=== PATIENT | male | born 1960 | race Caucasian/White ===

== ENCOUNTER → 2017-01-05 | Outpatient (CLI) | payer BC | LOC: MW.CHUR 11:32 | PROVIDERS: ATTEND Urology | DX: N40.0 Benign prostatic hyperplasia without lower urinary tract symptoms (principal); R31.9 Hematuria, unspecified | CPT/HCPCS: 36415; 51798; 81001; 84153 ==

== ENCOUNTER 2018-02-28 03:21 | Emergency (ER) | payer BC ==
[2018-02-28] MEDS ORDERED: Sodium Chloride 0.9% 10 ML Syringe FLUSH PRN (03:42)
[2018-02-28] MEDS ORDERED: Ondansetron 4 MG/2 ML SDV IVPUSH ONE (03:42)
[2018-02-28] MEDS ORDERED: Sodium Chloride 0.9% 2.5 ML Syringe FLUSH PRN (03:42)
[2018-02-28] MEDS ORDERED: Ketorolac 30 MG/ML SDV IVPUSH ONE (03:42)
[2018-02-28] MEDS ORDERED: Morphine 2 MG/ML Syringe IVPUSH ONE (03:42)
[2018-02-28] MEDS ORDERED: Sodium Chloride 0.9% 1,000 ML IV ONE (03:42)
--- NOTE | 2018-02-28 03:44 | EDM.PDOC ---
ED HPI GENERAL MEDICAL PROBLEM - General Chief Complaint: General Stated Complaint: LEFT SIDE PAIN Time Seen by Provider: 02/28/18 03:33 - History of Present Illness INITIAL COMMENTS - FREE TEXT/NARRATIVE: HISTORY AND PHYSICAL: History of present illness: The patient is a 57-year-old male with no stated GI or history presents with sudden onset of left flank pain that radiates to his left abdomen that started about one hour ago. Patient said he was sleeping when this started and had a normal day yesterday and in fact was at a wedding earlier this evening. When he woke up he had the sudden pain and it was associated with nausea and vomiting but no diarrhea. He has urinated since the onset of the pain it is not dark or bloody. He has never had kidney stones and he took no medications for this pain or nausea prior to coming here. He denies any recent trauma and had a normal bowel movement yesterday. He has no testicular pain or swelling no chest pain no shortness of breath and no right-sided abdominal pain. Review of systems: As per history of present illness and below otherwise all systems reviewed and negative. Past medical history: As per history of present illness and as reviewed below otherwise noncontributory. Surgical history: As per history of present illness and as reviewed below otherwise noncontributory. Social history: No reported history of drug or alcohol abuse. Family history: As per history of present illness and as reviewed below otherwise noncontributory. Physical exam: General: Well-developed well-nourished man who looks uncomfortable but is nontoxic and vital signs are noted by me HEENT: Atraumatic, normocephalic, negative for conjunctival pallor or scleral icterus, mucous membranes moist, throat clear, neck supple, nontender, trachea midline. Lungs: Clear to auscultation, breath sounds equal bilaterally, chest nontender. Heart: S1S2, regular, negative for clicks, rubs, or JVD. Abdomen: Soft, nondistended, there is some mild left lower quadrant tenderness without rebound or guarding and bowel sounds are hypoactive. Negative for masses or hepatosplenomegaly. Negative for costovertebral tenderness. Pelvis: Stable nontender. Genitourinary: Deferred. Rectal: Deferred. Extremities: Atraumatic, negative for cords or calf pain. Neurovascular unremarkable. Neuro: Awake, alert, oriented. Cranial nerves II through XII unremarkable. Cerebellum unremarkable. Motor and sensory unremarkable throughout. Exam nonfocal. Diagnostics: CBC CMP amylase lipase UA CT scan of the abdomen and pelvis Therapeutics: IV IV fluids Zofran Toradol morphine Dilaudid urine strainers for home Patient and at bedside are aware of all testing results and need for follow -up with urology. I will give them [place] Zofran and Flomax for home as well as urine strainers and have advised them for reasons to return to the ED. I've also advised him that he is somewhat dehydrated and needs to hydrate more. They' re comfortable with this care plan. Impression: Acute left flank pain with mild hydronephrosis improving stable Definitive disposition and diagnosis as appropriate pending reevaluation and review of above. Bilateral Flank Pain Score (Numeric/FACES): 10 - Related Data Allergies Allergy/AdvReac Type Severity Reaction Status Date / Time No Known Allergies Allergy Verified 02/28/18 03:43 Home Meds: Home Meds Omeprazole 20 mg PO ASDIRECTED 08/28/14 [History] ED ROS GENERAL - Review of Systems Review Of Systems: ROS reveals no pertinent complaints other than HPI. ED EXAM, GENERAL - Physical Exam Exam: See Below (See dictation) Course - Vital Signs Last Recorded V/S: Last Vital Signs Temp 35.9 C 02/28/18 05:02 Pulse 55 L 02/28/18 05:02 Resp 19 02/28/18 05:02 BP 132/57 L 02/28/18 05:02 Pulse Ox 95 02/28/18 05:02 - Orders/Labs/Meds Orders: Active Orders 24 hr Category Date Time Status Abdomen Pelvis wo Cont [CT] Stat Exams 02/28/18 03:42 Taken UA W/MICROSCOPIC [URIN] Stat Lab 02/28/18 04:20 Ordered Sodium Chloride 0.9% [Saline Flush] Med 02/28/18 03:42 Active 10 ml FLUSH ASDIRECTED PRN Sodium Chloride 0.9% [Saline Flush] Med 02/28/18 03:42 Active 2.5 ml FLUSH ASDIRECTED PRN Saline Lock Insert [OM.PC] Stat Oth 02/28/18 03:41 Ordered Medication Orders Sodium Chloride (Saline Flush) 10 ml FLUSH ASDIRECTED PRN PRN Reason: Keep Vein Open Sodium Chloride (Saline Flush) 2.5 ml FLUSH ASDIRECTED PRN PRN Reason: Keep Vein Open Labs: Laboratory Tests 02/28/18 02/28/18 02/28/18 Range/Units 03:50 03:50 04:20 WBC 8.76 (4.0-11.0) K/uL RBC 4.78 (4.50-5.90) M/uL Hgb 13.9 (13.0-17.0) g/dL Hct 40.0 (38.0-50.0) % MCV 83.7 (80.0-98.0) fL MCH 29.1 (27.0-32.0) pg MCHC 34.8 (31.0-37.0) g/dL RDW Std Deviation 42.5 (28.0-62.0) fl RDW Coeff of Sylvia 14 (11.0-15.0) % Plt Count 196 (150-400) K/uL MPV 9.30 (7.40-12.00) fL Neut % (Auto) 78.1 (48.0-80.0) % Lymph % (Auto) 15.0 L (16.0-40.0) % [place] % (Auto) 5.5 (0.0-15.0) % Eos % (Auto) 1.3 (0.0-7.0) % Baso % (Auto) 0.1 (0.0-1.5) % Neut # (Auto) 6.9 H (1.4-5.7) K/uL Lymph # (Auto) 1.3 (0.6-2.4) K/uL [place] # (Auto) 0.5 (0.0-0.8) K/uL Eos # (Auto) 0.1 (0.0-0.7) K/uL Baso # (Auto) 0.0 (0.0-0.1) K/uL Nucleated RBC % 0.0 /100WBC Nucleated RBCs # 0 K/uL Sodium 140 (136-148) mmol/L Potassium 3.3 L (3.5-5.1) mmol/L Chloride 103 (98-107) mmol/L Carbon Dioxide 27.1 (21.0-32.0) mmol/L BUN 21 H (7.0-18.0) mg/dL Creatinine 1.2 (0.8-1.3) mg/dL Est Cr Clr Drug Dosing 2.55 mL/min Estimated GFR (MDRD) > 60.0 ml/min Glucose 153 H (74-106) mg/dL Calcium 8.4 L (8.5-10.1) mg/dL Total Bilirubin 0.3 (0.2-1.0) mg/dL AST 22 (15-37) IU/L ALT 37 (14-63) IU/L Alkaline Phosphatase 62 (46-116) U/L Total Protein 7.6 (6.4-8.2) g/dL Albumin 4.0 (3.4-5.0) g/dL Globulin 3.6 H (2.0-3.5) g/dL Albumin/Globulin Ratio 1.1 L (1.3-2.8) Amylase 49 (25-115) U/L Lipase 128 (73-393) U/L Urine Color YELLOW Urine Appearance HAZY Urine pH 6.0 (5.0-8.0) Ur Specific [place] >= 1.030 (1.001-1.035) Urine Protein TRACE (NEGATIVE) mg/dL Urine Glucose (UA) NEGATIVE (NEGATIVE) mg/dL Urine Ketones NEGATIVE (NEGATIVE) mg/dL Urine Occult Blood LARGE H (NEGATIVE) Urine Nitrite NEGATIVE (NEGATIVE) Urine Bilirubin NEGATIVE (NEGATIVE) Urine Urobilinogen 0.2 (<2.0) EU/dL Ur Leukocyte Esterase NEGATIVE (NEGATIVE) Urine RBC 3-5 (0-2/HPF) Urine WBC 0-2 (0-5/HPF) Ur Epithelial Cells RARE (NONE-FEW) Urine Bacteria FEW (NEGATIVE) Urine Mucus LIGHT (NONE-MOD) Meds: Medications Generic Name Dose Route Start Last Admin Trade Name Freq PRN Reason Stop Dose Admin Sodium Chloride 10 ml 02/28/18 03:42 Saline Flush FLUSH ASDIRECTED PRN Keep Vein Open Sodium Chloride 2.5 ml 02/28/18 03:42 Saline Flush FLUSH ASDIRECTED PRN Keep Vein Open Discontinued Medications Generic Name Dose Route Start Last Admin Trade Name Freq PRN Reason Stop Dose Admin Hydromorphone HCl 1 mg 02/28/18 04:44 02/28/18 05:02 Dilaudid IVPUSH 02/28/18 04:45 Not Given ONETIME ONE Hydromorphone HCl 1 mg 02/28/18 04:57 02/28/18 04:59 Dilaudid IVPUSH 02/28/18 04:58 1 mg ONETIME ONE Administration Hydromorphone HCl Confirm 02/28/18 04:56 02/28/18 05:02 Dilaudid Administered 02/28/18 04:57 Not Given Dose 1 mg .ROUTE .STK-MED ONE Sodium Chloride 1,000 mls @ 999 mls/hr 02/28/18 03:42 02/28/18 03:53 Normal Saline IV 02/28/18 04:42 999 mls/hr STAT ONE Administration Ketorolac Tromethamine 30 mg 02/28/18 03:42 02/28/18 03:53 Toradol IVPUSH 02/28/18 03:43 30 mg ONETIME ONE Administration Morphine Sulfate 2 mg 02/28/18 03:42 02/28/18 03:53 Morphine IVPUSH 02/28/18 03:43 2 mg ONETIME ONE Administration Ondansetron HCl 4 mg 02/28/18 03:42 02/28/18 03:54 Zofran IVPUSH 02/28/18 03:43 4 mg ONETIME ONE Administration Departure - Departure Time of Disposition: 05:46 Disposition: Home, Self-Care 01 Condition: Good Clinical Impression: Acute flank pain Hydronephrosis Qualifiers: Hydronephrosis type: unspecified Qualified Code(s): N13.30 - Unspecified hydronephrosis - Discharge Information Referrals: PCP,None [Primary Care Provider] - Forms: ED Department Discharge Additional Instructions: The following information is given to patients seen in the emergency department who are being discharged to home. This information is to outline your options for follow-up care. We provide all patients seen in our emergency department with a follow-up referral. The need for follow-up, as well as the timing and circumstances, are variable depending upon the specifics of your emergency department visit. If you don't have a primary care physician on staff, we will provide you with a referral. We always advise you to contact your personal physician following an emergency department visit to inform them of the circumstance of the visit and for follow-up with them and/or the need for any referrals to a consulting specialist. The emergency department will also refer you to a specialist when appropriate. This referral assures that you have the opportunity for followup care with a specialist. All of these measure are taken in an effort to provide you with optimal care, which includes your followup. Under all circumstances we always encourage you to contact your private physician who remains a resource for coordinating your care. When calling for followup care, please make the office aware that this follow-up is from your recent emergency room visit. If for any reason you are refused follow-up, please contact the [facility] emergency department at and ask to speak to the emergency department charge nurse. [facility] Counts include 234 beds at the [facility] [place] [address] Please push hydration and strain all urine. Please call and follow-up with Dr. Gruber our urologist next week and return to ER as needed and as we discussed. Please use all medications as prescribed. You have been given [facility] Flomax and Zofran from [employer] - My Orders Last 24 Hours: My Active Orders 02/28/18 03:41 Saline Lock Insert [OM.PC] Stat 02/28/18 03:42 Abdomen Pelvis wo Cont [CT] Stat Sodium Chloride 0.9% [Saline Flush] 10 ml FLUSH ASDIRECTED PRN Sodium Chloride 0.9% [Saline Flush] 2.5 ml FLUSH ASDIRECTED PRN 02/28/18 04:20 UA W/MICROSCOPIC [URIN] Stat - Assessment/Plan Last 24 Hours: My Active Orders 02/28/18 03:41 Saline Lock Insert [OM.PC] Stat 02/28/18 03:42 Abdomen Pelvis wo Cont [CT] Stat Sodium Chloride 0.9% [Saline Flush] 10 ml FLUSH ASDIRECTED PRN Sodium Chloride 0.9% [Saline Flush] 2.5 ml FLUSH ASDIRECTED PRN 02/28/18 04:20 UA W/MICROSCOPIC [URIN] Stat
[2018-02-28 04:26] LABS: CHLORIDE,CL 103 mmol/L (98-107); SODIUM,NA 140 mmol/L (136-148)
[2018-02-28] MEDS ORDERED: HYDROmorphone 2 MG/ML Syringe IVPUSH ONE (04:44)
[2018-02-28] MEDS ORDERED: HYDROmorphone 1 MG/ML Syringe ONE (04:56)
[2018-02-28] MEDS ORDERED: HYDROmorphone 1 MG/ML Syringe IVPUSH ONE (04:57)
--- NOTE | 2018-03-01 15:22 | CT ---
EXAM DATE: 02/28/18 PATIENT'S AGE: 57 Patient: MAGO YEH Facility: [place], [place] Site . Site : 1960 Study: CT Abdomen/Pelvis [id number]/24/2018 4:44:52 AM Ordering Physician: Yuly Winn Final Report: INDICATION: Left lower quadrant pain TECHNIQUE: CT Abdomen and pelvis without i.v. contrast. Coronal and sagittal reformats were obtained. CONTRAST: None COMPARISON: None FINDINGS: Lower chest: Minimal bibasilar ground-glass atelectasis is seen. Liver: Unremarkable. Spleen: Unremarkable. Pancreas: Unremarkable. Gallbladder: Unremarkable. Kidney: Mild left hydroureter is present with soft tissue stranding surrounding the proximal ureter and kidney. There is also mild left renal pelvicaliectasis. The right kidney and ureter are unremarkable in appearance. Adrenal: Unremarkable. Bowel: Mild sigmoid diverticulosis is present with no inflammatory changes seen by CT. On image 108, there is a small lobule of fat outlined by soft tissue infiltration, abutting the distal descending colon. The appendix is normal in appearance and size. Vascular: Unremarkable. Lymph: Unremarkable. Peritoneum: Unremarkable. No pneumoperitoneum is seen. No significant ascites is noted. Pelvis: Small fat density in the right spermatic cord is present which is likely due to a lipoma. Soft tissue: See above. Bone: Small bone islands are present in the superior pubic rami bilaterally. IMPRESSIONS: 1. Mild left hydroureter is present with soft tissue stranding surrounding the proximal ureter and kidney. There is also mild left renal pelvicaliectasis. Correlation with clinical history would be helpful to distinguish between a recently passed stone or urinary tract infection with pyelitis or pyelonephritis. 2. On image 108, there is a small lobule of fat outlined by soft tissue infiltration, abutting the distal descending colon. This is most likely due to mild epiploic appendagitis. Dictated by Minh Yang MD @ 02/28/2018 4:54:07 AM Please note that all CT scans at this facility use dose modulation, iterative reconstruction, and/or weight-based dosing when appropriate to reduce radiation dose to as low as reasonably achievable. Dictated by: Minh Yang MD @ 02/28/2018 04:54:16 (Electronic Signature) Report Signed by Proxy. MTDD
== END 2018-02-28 06:03 | disposition home or self-care (01) ==
LOC: MW.ED 03:21
DX: N13.30 Unspecified hydronephrosis (principal)
CPT/HCPCS: 36415; 74176; 80053; 81001; 82150; 83690; 85025; 87086; 96361; 96374; 96375; 99284; J1170; J1885; J2270; J2405; J7040

== ENCOUNTER 2020-12-15 13:03 | Emergency (ER) | payer BC ==
[2020-12-15] MEDS ORDERED: Diphtheria,Pertussis(Acell),Tetanus Vaccine 0.5 ML Syringe IM ONE (13:37)
--- NOTE | 2020-12-15 13:38 | EDM.PDOC ---
ED HPI GENERAL MEDICAL PROBLEM - General Chief Complaint: Upper Extremity Injury/Pain Stated Complaint: RT HAND CUT Time Seen by Provider: 12/15/20 13:05 Source of Information: Reports: Patient History Limitations: Reports: No Limitations - History of Present Illness INITIAL COMMENTS - FREE TEXT/NARRATIVE: 60-year-old male no relevant past medical history presents for amputation injury to right third digit. Patient was moving some metal tin when his hand got smashed between 2 pieces of metal. He notes the bleeding was difficult to control prior to arrival. He does not think his tetanus vaccination is up-to-date. No other injuries right middle finger Pain Score (Numeric/FACES): 1 - Related Data Allergies Allergy/AdvReac Type Severity Reaction Status Date / Time No Known Allergies Allergy Verified 12/15/20 13:53 Home Meds: Home Meds . [No Known Home Meds] 12/15/20 [History] Past Medical History HEENT History: Reports: None Cardiovascular History: Reports: None Respiratory History: Reports: None Gastrointestinal History: Reports: None Genitourinary History: Reports: None Neurological History: Reports: None Psychiatric History: Reports: None Endocrine/Metabolic History: Reports: None Hematologic History: Reports: None Immunologic History: Reports: None Oncologic (Cancer) History: Reports: None Dermatologic History: Reports: None - Infectious Disease History Infectious Disease History: Reports: None - Past Surgical History Head Surgeries/Procedures: Reports: None Endocrine Surgical History: Reports: None Neurological Surgical History: Reports: None Other Musculoskeletal Surgeries/Procedures:: neck surgery 15 years ago Social & Family History - Caffeine Use Caffeine Use: Reports: Soda Review of Systems - Review of Systems Review Of Systems: Comprehensive ROS is negative, except as noted in HPI. ED EXAM, GENERAL - Physical Exam Exam: See Below Exam Limited By: No Limitations General Appearance: Alert, WD/WN, No Apparent Distress Ears: Hearing Grossly Normal Throat/Mouth: Normal Voice, No Airway Compromise Head: Atraumatic, Normocephalic Neck: Normal Inspection Respiratory/Chest: No Respiratory Distress, No Accessory Muscle Use Cardiovascular: Normal Peripheral Pulses Extremities: Other (zone I fingertip amputation injury of R 3rd digit; does not involve nail or nailbed, no bony involvement on physical exam, intact sensation, mild oozing bleeding. ) Neurological: Alert, Normal Cognition, Normal Gait Psychiatric: Normal Affect, Normal Mood Skin Exam: Warm, Dry, Intact, Normal Color Course - Vital Signs Last Recorded V/S: Last Vital Signs Temp 97.5 F 12/15/20 13:49 Pulse 61 12/15/20 13:49 Resp 16 12/15/20 13:49 BP 141/69 H 12/15/20 13:49 Pulse Ox 96 12/15/20 13:49 - Orders/Labs/Meds Orders: Active Orders 24 hr Category Date Time Status Vaccines to be Administered [RC] PER UNIT ROUTINE Care 12/15/20 13:37 Active Meds: Medications Discontinued Medications Generic Name Dose Route Start Last Admin Trade Name Freq PRN Reason Stop Dose Admin Diphtheria/Tetanus/Acell Pertussis 0.5 ml 12/15/20 13:37 Diphtheria,Pertussis(Acell),Tetanus Vaccine 0.5 Ml Syringe IM 12/15/20 13:38 .ONCE ONE - Re-Assessments/Exams Free Text/Narrative Re-Assessment/Exam: 12/15/20 13:53 Patient presents with apparent zone 1 fingertip amputation injury to right third digit. It does not seem to involve the fingernail, nailbed. No bony involvement noted on physical exam. Will get x-ray of the finger to ensure no bony involvement. Patient's hand is soaking in soapy water now and will clean. Will update patient's tetanus vaccination. 12/15/20 14:07 X-ray imaging confirms that there is no bony involvement. Departure - Departure Time of Disposition: 14:07 Disposition: Home, Self-Care 01 Condition: Good Clinical Impression: Fingertip amputation Qualifiers: Encounter type: initial encounter Qualified Code(s): S68.119A - Complete traumatic metacarpophalangeal amputation of unspecified finger, initial encounter - Discharge Information Instructions: Traumatic Finger Amputation Referrals: PCP,None [Primary Care Provider] - Forms: ED Department Discharge Additional Instructions: You presented to the emergency department today with a fingertip amputation injury. It does not seem to involve the nailbed or fingernail. It does not seem to involve the bone. You will need to keep this clean and covered. It can take several weeks for the fingertip to completely epithelialize or grow back. You should soak the affected finger in soapy water for 10 minutes once or twice daily. You can clean it with soap and water. You should follow-up with your primary care physician for wound reassessment. The following information is given to patients seen in the emergency department who are being discharged to home. This information is to outline your options for follow-up care. We provide all patients seen in our emergency department with a follow-up referral. The need for follow-up, as well as the timing and circumstances, are variable depending upon the specifics of your emergency department visit. If you don't have a primary care physician on staff, we will provide you with a referral. We always advise you to contact your personal physician following an emergency department visit to inform them of the circumstance of the visit and for follow-up with them and/or the need for any referrals to a consulting specialist. The emergency department will also refer you to a specialist when appropriate. This referral assures that you have the opportunity for follow-up care with a specialist. All of these measure are taken in an effort to provide you with optimal care, which includes your follow-up. Under all circumstances we always encourage you to contact your private physician who remains a resource for coordinating your care. When calling for follow-up care, please make the office aware that this follow-up is from your recent emergency room visit. If for any reason you are refused follow-up, please contact the [facility] Emergency Department at and asked to speak to the emergency department charge nurse. Please follow up with your primary care physician. If you do not have a primary care physician, see below: [facility] [address] [place] [id number] [facility] [address] [place] [address] [facility] [address] [place] [id number] Sepsis Event Note (ED) - Focused Exam Vital Signs: Vital Signs Temp Pulse Resp BP Pulse Ox 12/15/20 13:49 97.5 F 61 16 141/69 H 96 - My Orders Last 24 Hours: My Active Orders 12/15/20 13:37 Vaccines to be Administered [RC] PER UNIT ROUTINE - Assessment/Plan Last 24 Hours: My Active Orders 12/15/20 13:37 Vaccines to be Administered [RC] PER UNIT ROUTINE
--- NOTE | 2020-12-15 14:06 | CR ---
Indication: Right middle finger amputation Technique: Three-views of the right 3rd finger Findings : Normal alignment. No acute fractures or acute osseous abnormalities. No radiopaque foreign body soft tissue defect distal right 3rd finger. Dictated by Danielle Reyes MD @ Dec 15 2020 2:05PM Signed by Dr. Danielle Reyes @ Dec 15 2020 2:06PM
== END 2020-12-15 14:29 | disposition home or self-care (01) ==
LOC: MW.ED 13:03
DX: S68.622A Partial traumatic transphalangeal amputation of right middle finger, initial encounter (principal); Z23 Encounter for immunization; W23.0XXA Caught, crushed, jammed, or pinched between moving objects, initial encounter
CPT/HCPCS: 73140-26-F7; 73140-F7; 90471; 90715; 99283; 99283-25